=== PATIENT | male | born 1960 | race Caucasian/White ===

== ENCOUNTER 2016-07-08 13:18 | Observation (INO) | payer MEDICARE, MEDICAID ==
[~2016-07-08] VITALS: Ht 175.3 cm; Wt 111.7 kg
[~2016-07-08 13:18] MED LIST: ASCO250T6 PO; ERGO400C PO; ERGO5000 PO; PRO1 PO
[2016-07-08 13:26] VITALS: BP 175/108; PULSE 70; RESP 10; O2SAT 100
[2016-07-08] MEDS ORDERED: Ondansetron 8 mg ODT Tablet PO ONE (14:35)
--- NOTE | 2016-07-08 14:55 | ED.REPORT ---
HPI-NVD Date of Service July 08, 2016 ED Provider: Priya Charles History of Present Illness: nausea, vomiting since this am. constant vomiting. no sob. slight diarrhea. 1 liter of fluids no help. normally healthy. primary care is ball. 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 followed at the . just had appointment recently in April. Per his report, all fine Nursing Notes Stated Complaint: SICK Chief Complaint: Male Abdominal Pain Nursing Notes Reviewed: Yes Allergies: Coded Allergies: No Known Allergies (Unverified , 05/05/09) Scheduled Ascorbic Acid-Expunged Drug, Do Not Renew! (Vitamin C-Expunged Drug, Do Not Renew!) 250 Mg Tablet 500 MG PO BID Ergocalciferol-Expunged Drug, Do Not Renew! (Vitamin D2-Expunged Drug, Do Not Renew!) 50,000 Unit Capsule 2,000 UNIT PO DAILY Ergocalciferol-Expunged Drug, Do Not Renew! (Vitamin D-Expunged Drug, Do Not Renew!) 400 Unit Capsule 2,000 UNIT PO BID Tacrolimus-Expunged Drug, Do Not Renew! (Prograf-Expunged Drug, Do Not Renew!) 1 Mg Capsule 1 MG PO BID Tacrolimus Anhydrous 1mg 2 tabs BID General Time Seen by MD: 14:54 Chief Complaint Nausea, Vomiting Onset Occurred: 17 - 20 hours ago Symptom Duration: Since onset Past Medical History Past Medical History liver transplant Denies: Asthma, Diabetes mellitus Past Surgical History liver transplant Smoking History Former Smoker (quit 12 years ago 07/08/2016) Social History Alcohol Use: Denies alcohol use Drug Use: Denies drug use Occupation lives with roommate, no work or school 07/08/2016 Ambulatory Status Independent Review of Systems Basic Review of Systems Eyes: Vision NL, No discharge Hematologic: No bleeding, No bruising Psychiatric: Normal thought content Physical Exam Initial Vital Signs Vital Signs (First) Date Time Temp Pulse Resp B/P Pulse Ox O2 Delivery O2 Flow Rate FiO2 07/08/16 13:26 36.6 70 10 175/108 100 Room Air Initial VS: Reviewed, Vital signs abnormal Head / Eyes: Atraumatic, Normocephalic, PERRL ENT: Mucous membranes moist, Conjunctiva normal, No scleral icterus Neck: Supple, Non-tender, Full range of motion Respiratory: Breath sounds normal, Clear to auscultation, No respiratory distress Cardiovascular: Regular rate & rhythm, Heart sounds normal, Intact distal pulses Back: No CVA tenderness Lymphatic: No lymphadenopathy Extremities: Vascular intact, Neuro intact, No swelling, No tenderness Skin: Warm, Dry, No cyanosis Neurologic: Alert, Oriented, Nonfocal Psychiatric: Mood/affect normal, Behavior normal, Normal thought content General/Constitutional: Awake, Alert Distress / Hydration: Positive: Distress mild Abdomen: Atraumatic, Soft, Non-tender, McBurney's non-tender Respiratory / Chest: Atraumatic, Breath sounds NL, Breath sounds = bilat Cardiovascular: Heart rate NL, Regular rhythm, Heart sounds NL Interpretation & Diagnostics Lab Results Interpretation Result Diagram: 07/08/16 1527 07/08/16 1527 Test 07/08/16 14:40 07/08/16 15:27 07/08/16 16:45 Hold Urine Received (Received) White Blood Count 11.8th/mm3 (3.8-10.1) Red Blood Count 5.09mil/mm3 (4.40-5.80) Hemoglobin 14.8g/dL (13.8-17.2) Hematocrit 41.8% (41.0-50.0) Mean Corpuscular Volume 82.1fL (81-100) Mean Corpuscular Hemoglobin 29.1pg (27.0-35.0) Mean Corpuscular Hemoglobin Concent 35.4% (32.0-37.0) Red Cell Distribution Width 13.4% (12.3-15.4) Platelet Count 196bil/L (150-400) Neutrophils (%) (Auto) 85.8% (40-74) Lymphocytes (%) (Auto) 9.1% (14-46) Monocytes (%) (Auto) 4.1% (4-12) Eosinophils (%) (Auto) 0.2% (0-5) Basophils (%) (Auto) 0.3% (0-3) Sodium Level 136mEq/L (134-144) Potassium Level 3.4mEq/L (3.5-5.2) Chloride Level 97mEq/L (97-108) Carbon Dioxide Level 19mmol/L (18-29) Blood Urea Nitrogen 15mg/dL (6-24) Creatinine 0.80mg/dL (0.76-1.27) Estimat Glomerular Filtration Rate 106mL/min (>59) Glucose Level 141mg/dL (60-99) Lactic Acid Level 1.1mmol/L (0.4-2.0) Calcium Level 9.4mg/dL (8.5-10.1) Total Bilirubin 0.4mg/dL (0.0-1.2) Aspartate Amino Transf (AST/SGOT) 18U/L (0-50) Alanine Aminotransferase (ALT/SGPT) 18U/L (0-44) Alkaline Phosphatase 105U/L (25-150) Troponin T < 0.010ug/L (0.0-0.011) Total Protein 7.8g/dL (6.4-8.4) Albumin 4.8g/dL (3.4-5.0) Amylase Level 64U/L (28-100) Lipase 32U/L (13-60) Urine Color Yellow (YELLOW) Urine Appearance Clear (CLEAR,HAZY) Urine pH 6.5 (5.0-8.0) Urine Specific Buras 1.015 (1.003-1.035) Urine Protein 100mg/dL (NEG,TRACE) Urine Glucose (UA) Negativemg/dL (NEGATIVE) Urine Ketones 15mg/dL (NEGATIVE) Urine Occult Blood Moderate (NEGATIVE) Urine Nitrite Negative (NEGATIVE) Urine Bilirubin Negative (NEGATIVE) Urine Urobilinogen Normalmg/dL (NORMAL) Urine Leukocyte Esterase Negative (NEGATIVE) Urine RBC >50/hpf (0-2) Urine WBC 0-5/hpf (0-5) Urine Epithelial Cells Few/hpf (NONE-MOD) Urine Crystals None seen (NONE SEEN) Urine Bacteria Few/hpf (NONE-FEW) Urine Hyaline Casts None/lpf (NONE) Urine Granular Casts None seen (NONE SEEN) Urine Waxy Casts None seen (NONE SEEN) Urine Red Blood Cell Casts None seen (NONE SEEN) Urine White Blood Cell Casts None seen (NONE SEEN) Urine Mucus None seen (None Seen) Urine Trichomonas None seen (NONE SEEN) Urine Yeast None (NONE SEEN) Urinalysis Comment None Urine Culture Reflexed Not indicated Re-Eval/Medical Decision Med Decision/Clinical Course patient initially seen at the walk [facility] clinic. Had no response to zofran and fluids. Had some responce to reglan and phenergan. Did not take blood pressure medication this am becuase of vomiting. Unable to decrease nausea and vomiting. Admit. Care of patient turned over to Dr. Whitaker. Patient discussed with Dr. Bhatt at hepatology clinic. Vomiting not related to transplant. 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 He requests that if patient is admitted daily labs be drawn. Any questions he is available for consult. Discharge & Departure Impression: Primary Impression: Vomiting Additional Impressions: Nausea High blood pressure Disposition: ADMITTED TO HOSPITAL Patient Instructions: Acute Nausea and Vomiting (ED) Referrals: Maximo Fay MD (PCP) EDSupervising Provider for APC: Eric Whitaker MD copies to: Maximo Fay MD, Sue ARNP July 08, 2016 14:55 Priya Charles July 08, 2016 14:55
[2016-07-08] MEDS ORDERED: MetoCLOpramide 5 mg/mL 2 mL Inj IVPUSH ONE (15:05)
[2016-07-08] MEDS ORDERED: 0.9% Sodium Chloride 1,000 ML IV ONE (15:05)
[2016-07-08 15:33] LABS: BASOPHILS % (AUTO) 0.3 % (0-3); EOSINOPHILS % (AUTO) 0.2 % (0-5); MONOCYTES % (AUTO) 4.1 % (4-12); Mean Corpuscular Hemoglobin 29.1 pg (27.0-35.0); Mean Corpuscular Volume 82.1 fL (81-100); NEUTROPHILS % (AUTO) 85.8 % (40-74); Platelet Count 196 bil/L (150-400)
[2016-07-08 16:12] LABS: Lipase 32 U/L (13-60); TROPONIN T < 0.010 ug/L (0.0-0.011)
--- NOTE | 2016-07-08 16:28 | DRSVH ---
PROCEDURE: US ABDOMEN INDICATIONS: upper abd pain, hx of liver transplant TECHNIQUE: Real-time scanning was performed of the abdominal and retroperitoneal organs, with image documentatio n. COMPARISON: None. FINDINGS: Liver length: 13.81 cm Gallbladder Wall Thickness: n.a. CBD: 4.30 mm Spleen length: 13.32 cm Right kidney length: 12.42 cm Left kidney length: 11.32 cm Aorta(Proximal): - Aorta(Mid): 2.44 cm Aorta(Distal): 2.04 cm RCIA: 1.57 cm LCIA: 1.59 cm Liver: Liver is normal in size and homogeneous in echotexture. Gallbladder: Gallbladder is surgically absent Biliary ducts: Intrahepatic bile ducts are non-dilated. Extrahepatic bile duct caliber is normal. Normal is 6-7 mm or less in diameter, or 10 mm or less post-cholecystectomy. Pancreas: Obscured by overlying bowel gas. Spleen: Spleen is normal in size and homogeneous in echotexture. Kidneys: Kidneys are normal in size and echotexture. No hydronephrosis or nephrolithiasis. No daryl d masses. Aorta: Visualized aorta is normal in caliber at less than 3 cm. Iliacs: Proximal common iliac arteries are normal in caliber at less than 2.5 cm. IVC: Intrahepatic inferior vena cava is patent. Miscellaneous: No free abdominal fluid. IMPRESSION: No ultrasound findings with the upper abdominal pain. Dictated by: Ingrid Leigh M.D. on 07/08/2016 at 16:26 Transcribed by: SRINI on 07/08/2016 at 16:28 Approved by: Ingrid Leigh M.D. on 07/08/2016 at 17:26
[2016-07-08 17:00] VITALS: BP 160/97; PULSE 85; RESP 18; O2SAT 96
[2016-07-08] MEDS ORDERED: Promethazine Inj 25 MG in 0.9% Sodium Chloride 50 ML IV ONE (17:00)
[2016-07-08 17:18] LABS: APPEARANCE,URINE CLEAR (CLEAR,HAZY); COLOR,URINE YELLOW (YELLOW); OCCULT BLOOD,URINE MODERATE (NEGATIVE); PH,URINE 6.5 (5.0-8.0); UROBILINOGEN,URINE NORMAL (NORMAL)
--- NOTE | 2016-07-08 17:59 | DRSVH ---
PROCEDURE: CT ABDOMEN AND PELVIS WITH CONTRAST ([id number]) INDICATIONS: nausea, vomiting abd pain TECHNIQUE: After the administration of intravenous contrast, 5 mm thick sections acquired from the diaphragm to the symphysis. 5 mm coronal and sagittal reformats were acquired. For radiation dose reduction, the following was used: automated exposure control, adjustment of mA and/or kV according to patient siz e. COMPARISON: [facility], CT, ABD/PELVIS W/CON (PN), 12/11/2009, 13:30. FINDINGS: Image quality: Excellent. ABDOMEN: Lung bases: Lung bases are clear of acute opacities. Nodule in the left lower lobe is stable.. Hea rt size is normal. Solid organs: Liver and spleen are normal in size and enhancement. Gallbladder is surgically absent . Biliary system is non dilated. Pancreas enhances normally. No adrenal nodules. Kidneys demonstr ate normal size and enhancement, without hydronephrosis. Peritoneum and bowel: Multilevel hernia. Bowel loops demonstrate normal wall thickness and caliber. No free fluid or air. Few scattered colonic diverticuli are noted. Appendix is normal. Nodes and vessels: No retroperitoneal or mesenteric adenopathy by size criteria. Aorta and inferior vena cava are normal in size. Scattered atherosclerotic calcifications noted abdominal pelvic vascul ature. Miscellaneous: Small left paramedian ventral hernia which partially contains portion of the transver se colon. PELVIS: Genitourinary: Bladder wall thickness is normal. Miscellaneous: No adenopathy. Small bilateral fat containing inguinal hernias. Bones: No suspicious bony lesions. No vertebral body compression fractures. 9 degenerative disc dis ease and facet arthropathy. IMPRESSION: 1. No acute disease process. 2. Colonic diverticulosis without evidence of diverticulitis. 3. Small left paramedian supraumbilical ventral hernia which contains the antimesenteric wall of the distal transverse colon. 3. No dilated loops of bowel. 4. No free fluid or air. 5. The appendix is normal. 6. Left lower lobe nodule stable compared to 12/11/2009. Dictated by: Maxine Perez MD, PhD on 07/08/2016 at 17:52 Approved by: Maxine Perez MD, PhD on 07/08/2016 at 17:58
[2016-07-08] MEDS ORDERED: LidocaineVisc 2%:Antacid 1:1 10 mL Syringe PO ONE (18:40)
[2016-07-08 19:10] VITALS: BP 180/115; PULSE 96; RESP 18; O2SAT 100
[2016-07-08] MEDS ORDERED: Ondansetron 2 mg/mL 2 mL Inj IVPUSH ONE (20:10)
[2016-07-08] MEDS ORDERED: Ondansetron 2 mg/mL 2 mL Inj IVPUSH PRN (22:10)
[2016-07-08] MEDS ORDERED: Alum-Mag Hydrox-Simeth 30 mL Suspension PO PRN (22:10)
[2016-07-08] MEDS ORDERED: Polyethylene Glycol (PEG) 17 Gm Powder PO PRN (22:10)
[2016-07-08 22:21] VITALS: BP 130/85; PULSE 90; RESP 18; O2SAT 96
[2016-07-08 22:47] VITALS: BP 140/97; PULSE 90; RESP 16; O2SAT 96
[2016-07-09] MEDS ORDERED: 0.9% Sodium Chloride 1,000 ML IV ONE (01:15)
--- NOTE | 2016-07-09 01:20 | PCM.HPMED ---
Subjective Date of Service July 09, 2016 Primary Provider: Admitting Physician: Brandon Estevez MD Primary Care Physician: Maximo Fay MD Attending Physician: Brandon Estevez MD Chief Complaint: Nausea and vomiting. History of Present Illness: Mr. Will Faust is a very pleasant 55-year-old gentleman who presents to the [facility] emergency Department with 18 hours of new-onset intractable nausea and vomiting. He denies any sick contacts, foods out of the ordinary, homemade pizza. He denies syncope, fever, chills, chest pain, shortness of breath, hematemesis, constipation, diarrhea, dysuria. 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 Other past medical history includes hypertension. Patient denies exposure to chemicals, drugs or anything out of the usual. In the emergency department upon admission patient's temperature is 36.6, pulse 70, respiration rate of 10, blood pressure 175/108, pulse ox 100% on room air. Patient's white count is 11.8, hemoglobin 14.8, neutrophils 85.8, lymphs 9.1. Patient's sodium is 136, potassium 3.4, chloride 97, CO2 19, creatinine 0.8, glucose 141, lactic acid 1.1. AST ALT and alkaline phosphatase all normal, troponin is negative. Amylase and lipase negative. UA has moderate protein of 100, ketones of 15, red blood cells greater than 50. Review of Systems: Pertinent positives as noted in HPI. All other systems were reviewed and are negative Allergies Coded Allergies: No Known Allergies (Unverified , 05/05/09) Home Medications Amlodipine 10 mg daily Calcium 600 mg twice a day Cyclobenzaprine 10 mg 2 times a day Fluoxetine 20 mg daily Ibuprofen 600 mg every 6 hours Metoprolol tartrate 25 mg twice a day for heart palpitations Multivitamin daily Hibbs 5 mg 325 mg every 6 hours when necessary pain Tacrolimus 1 mg Every 6 hours Viagra 100 mg daily as needed before sexual activity Vitamin C 500 mg Vitamin D 1999 PMH Hypertension Liver transplant 2006. Surgical History Liver transplant 2006. Family History Patient's mother had and of lung cancer. Patient's father was obese. Social History Hx Alcohol Use: Yes (quit 18 yrs ago) Hx Substance Use: No Smoking Status: Former Smoker (quit 12 years ago 07/08/2016) Exam Vital Signs Vital Sign - Last Date Time Temp Pulse Resp B/P Pulse Ox O2 Delivery O2 Flow Rate FiO2 07/08/16 22:47 36.9 90 16 140/97 96 Room Air Intake and Output 07/08/16 07/08/16 07/09/16 Cumulative From/Thru 15:00 23:00 07:00 07/08/16 13:26 - 07/08/16 23:00 Intake Total 1000 ml 1000 ml Balance 1000 ml 1000 ml Intake IV Total 1000 ml 1000 ml Exam General: Middle-aged gentleman lying in bed in moderate distress. Obese and well-developed, well-nourished, appropriately interactive HEENT: Normocephalic, atraumatic. External ears without defect. Pupils equal, round, and reactive to light and accommodation. Anicteric sclerae, moist conjunctivae, and no lid lag. Oropharynx free of erythema and cobble stoning with moist mucosa. Neck: Supple with full range of motion. No jugular venous distension. No bruits. No lymphadenopathy or thyromegaly. Cardiovascular: Regular rate and rhythm with no murmurs, rubs, or gallops appreciated Pulmonary: Clear to auscultation bilaterally with no crackles, wheezes, or rhonchi. Normal respiratory effort with no use of accessory muscles. Abdomen: Bowel tones present. Soft obese with multiple small abdominal wall herniations present, nontender, nondistended. No hepatosplenomegaly or masses appreciated. Extremities: No clubbing, cyanosis, edema, or lymphadenopathy appreciated. Skin: Normal temperature, turgor, and texture; no rash, ulcers, or subcutaneous nodules appreciated. Neurological: Cranial nerves grossly intact. Normal muscle strength, tone, and bulk. Reflexes, coordination, and sensory function within normal limits. No known gait impairment. Psychiatric: Normal mood and affect. Alert and oriented to person, place, and time. Lab and Diagnostics Result Diagram: 07/08/16 1527 07/08/16 1527 X-Rays, CTs and MRIs CT ABDOMEN AND PELVIS WITH CONTRAST IMPRESSION: 1. No acute disease process. 2. Colonic diverticulosis without evidence of diverticulitis. 3. Small left paramedian supraumbilical ventral hernia which contains the antimesenteric wall of the distal transverse colon. 4. No dilated loops of bowel. 5. No free fluid or air. 6. The appendix is normal. 7. Left lower lobe nodule stable compared to 12/11/2009. Dictated by: Maxine Perez MD, PhD on 07/08/2016 at 17:52 US ABDOMEN IMPRESSION: No ultrasound findings with the upper abdominal pain. Dictated by: Ingrid Leigh M.D. on 07/08/2016 at 16:26 Assessment & Plan Mr. Will Faust is a very pleasant 55-year-old gentleman who presents to the [facility] emergency Department with 18 hours of new-onset intractable nausea and vomiting. He denies any sick contacts, foods out of the ordinary, homemade pizza. He denies syncope, fever, chills, chest pain, shortness of breath, hematemesis, constipation, diarrhea, dysuria. 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 Other past medical history includes hypertension. 1. Intractable nausea and vomiting, present on admission. Active. - Continue IV fluids as needed. - Zofran and Phenergan PRN nausea. - Unclear etiology at this point. - Abdominal CT and ultrasound as above. 2. History of Liver transplant, present on admission. - Liver transplant 2006 followed by transplant team. - Patient on tacrolimus daily. Holding due to N/V. Day team to address in the AM. - Repeat a.m. labs. - Continue home medications. 3. Chronic essential Hypertension, not present on admission. Stable. - Avoid use of lisinopril patient had previous moderate cough - Continue home amlodipine 10 mg daily when appropriate. - Continue home Metoprolol tartrate 25 mg 2 times daily when appropriate. 4. Chronic depression, present on admission. Stable. - Continue home Fluoxetine 20 mg tab take half tablet once daily. Holding other home medications: Multivitamin Vitamin C Vitamin D Viagra Hibbs 06/22/2024 Cyclobenzaprine 10 mg Calcium 600 mg Acetaminophen for mild pain when necessary. Bowel regimen Senna and MiraLAX scheduled and PRN. Zofran and Phenergan when necessary for nausea and vomiting. SubQ heparin held for now. SCDs in place. Disposition: Patient is admitted under observation status. Discharge is dependent upon fluid status and nausea and vomiting. Discharge home when medically stable. Pain Evaluation: Adequate Pain Control Resuscitation Status: CPR: Attempt Resuscitation Attending Statement The patient was seen and examined together with Dr. Salinas on 07/08 and I agree with the history, exam and plan as outlined in the note above. DARYA SALINAS DO July 09, 2016 01:20 Brandon Estevez MD July 09, 2016 04:38
[2016-07-09] MEDS ORDERED: Ondansetron 2 mg/mL 2 mL Inj IVPUSH PRN (03:10)
[2016-07-09] MEDS ORDERED: Promethazine Inj 25 MG in 0.9% Sodium Chloride-Pha MIX 100 ML IV PRN (03:20)
--- NOTE | 2016-07-09 04:53 | NUR ---
Admit Note Pt. arrived to the unit approx. 2300 via gurney, A&Ox4, calm, pleasant and cooperative to staff and care, able to verbalize needs with clear speech, oriented to rm, call light, tv, and bed, given 1 dose of prn zofran per order with a good results, no emesis noted/reported, no other discomfort voiced this shift, vitals stable, call light in reach, will continue to monitor.
[2016-07-09 06:00] VITALS: BP 138/81; PULSE 69; RESP 16; O2SAT 97
[2016-07-09 08:15] VITALS: BP 152/95; PULSE 72; RESP 16; O2SAT 95
[2016-07-09] MEDS ORDERED: FLUoxetine 4 mg/mL 118 mL Solution PO SCH (08:30)
[2016-07-09] MEDS ORDERED: FLUO10CA20 PO (08:53)
[2016-07-09] MEDS ORDERED: METO25TA99 PO (08:53)
[2016-07-09] MEDS ORDERED: AMLO10TA3 PO (08:53)
[2016-07-09] MEDS ORDERED: IBUP-1827 PO (08:53)
[2016-07-09] MEDS ORDERED: TACR1CAP8 PO (08:57)
[2016-07-09] MEDS ORDERED: ERGO400T3 PO (08:57)
[2016-07-09] MEDS ORDERED: ASCO500W7 PO (08:57)
--- NOTE | 2016-07-09 11:09 | NUR ---
TIMOTHY explained and signed. Copy of TIMOTHY and Medicare self administered medication information given to pt.
--- NOTE | 2016-07-09 11:18 | PCM.DIMED ---
Discharge Instructions Date of Service July 09, 2016 Dates of Hospitalization July 08, 2016 at 22:31 Discharge Diagnosis Discharge Diagnosis Vomiting Hypertension Depression Liver Transplant Diet No restrictions Activity No restrictions Call your provider Fever or Chills, Shortness of breath, Bleeding, Chest pain, Vomitting, Excessive diarrhea, Weakness (unilateral) Patient Instructions Follow-up Provider: Maximo Fay MD Follow-up with PCP in: 1 week Jayleen Neil MD July 09, 2016 11:18
[2016-07-09 12:01] VITALS: BP_SYST 153; BP_SYST 166; BP_DIAS 104; BP_DIAS 105; PULSE 72; RESP 16; O2SAT 95
[2016-07-09] MEDS ORDERED: hydrALAZINE 20 mg/mL Inj IV PRN (12:05)
[2016-07-09 13:35] VITALS: BP 176/105
--- NOTE | 2016-07-09 14:01 | PCM.DC.MED ---
Discharge Summary Date of Service July 09, 2016 Dates of Hospitalization Date of Hospital Admission July 08, 2016 at 22:31 Date of Discharge: July 09, 2016 Providers: Admitting Physician: Brandon Estevez MD Primary Care Physician: Maximo Fay MD Attending Physician: Brandon Estevez MD Diagnosis at Time of Discharge Diagnosis at Time of Discharge Vomiting Hypertension Depression Liver Transplant Procedures XRay, CTs & MRIs CT ABDOMEN AND PELVIS WITH CONTRAST IMPRESSION: 1. No acute disease process. 2. Colonic diverticulosis without evidence of diverticulitis. 3. Small left paramedian supraumbilical ventral hernia which contains the antimesenteric wall of the distal transverse colon. 4. No dilated loops of bowel. 5. No free fluid or air. 6. The appendix is normal. 7. Left lower lobe nodule stable compared to 12/11/2009. Dictated by: Maxine Perez MD, PhD on 07/08/2016 at 17:52 US ABDOMEN IMPRESSION: No ultrasound findings with the upper abdominal pain. Dictated by: Ingrid Leigh M.D. on 07/08/2016 at 16:26 Brief History Mr. Will Faust is a very pleasant 55-year-old gentleman who presents to the [facility] emergency Department with 18 hours of new-onset intractable nausea and vomiting. He denies any sick contacts, foods out of the ordinary, homemade pizza. He denies syncope, fever, chills, chest pain, shortness of breath, hematemesis, constipation, diarrhea, dysuria. 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 Other past medical history includes hypertension. Patient denies exposure to chemicals, drugs or anything out of the usual. In the emergency department upon admission patient's temperature is 36.6, pulse 70, respiration rate of 10, blood pressure 175/108, pulse ox 100% on room air. Patient's white count is 11.8, hemoglobin 14.8, neutrophils 85.8, lymphs 9.1. Patient's sodium is 136, potassium 3.4, chloride 97, CO2 19, creatinine 0.8, glucose 141, lactic acid 1.1. AST ALT and alkaline phosphatase all normal, troponin is negative. Amylase and lipase negative. UA has moderate protein of 100, ketones of 15, red blood cells greater than 50. Hospital Course 1. Intractable nausea and vomiting, present on admission. Active. - Responded and resolved with IVF treatment. - Abdominal CT and ultrasound as above. - No cause found 2. History of Liver transplant, present on admission. - Liver transplant 2006 followed by transplant team. - Patient on tacrolimus daily. 3. Chronic essential Hypertension - Continue home amlodipine 10 mg daily - Continue home Metoprolol tartrate 25 mg 2 times daily - BP continues very high at discharge. He received one dose of Hydralazine today. He is confident that it will normalize when he is home again - Follow up with Dr. Sumeet macdonald. 4. Chronic depression, present on admission. Stable. - Continue home Fluoxetine 20 mg tab take half tablet once daily. On exam today the Heart, Lungs, Abdomen and Extremities are normal. He is discharged in stable condition. Exam Vital Signs (Last) Date Time Temp Pulse Resp B/P Pulse Ox O2 Delivery O2 Flow Rate FiO2 07/09/16 08:15 36.8 72 16 152/95 95 Room Air Test 07/08/16 14:40 07/08/16 15:27 07/08/16 16:45 Hold Urine Received (Received) White Blood Count 11.8th/mm3 (3.8-10.1) Red Blood Count 5.09mil/mm3 (4.40-5.80) Hemoglobin 14.8g/dL (13.8-17.2) Hematocrit 41.8% (41.0-50.0) Mean Corpuscular Volume 82.1fL (81-100) Mean Corpuscular Hemoglobin 29.1pg (27.0-35.0) Mean Corpuscular Hemoglobin Concent 35.4% (32.0-37.0) Red Cell Distribution Width 13.4% (12.3-15.4) Platelet Count 196bil/L (150-400) Neutrophils (%) (Auto) 85.8% (40-74) Lymphocytes (%) (Auto) 9.1% (14-46) Monocytes (%) (Auto) 4.1% (4-12) Eosinophils (%) (Auto) 0.2% (0-5) Basophils (%) (Auto) 0.3% (0-3) Sodium Level 136mEq/L (134-144) Potassium Level 3.4mEq/L (3.5-5.2) Chloride Level 97mEq/L (97-108) Carbon Dioxide Level 19mmol/L (18-29) Blood Urea Nitrogen 15mg/dL (6-24) Creatinine 0.80mg/dL (0.76-1.27) Estimat Glomerular Filtration Rate 106mL/min (>59) Glucose Level 141mg/dL (60-99) Lactic Acid Level 1.1mmol/L (0.4-2.0) Calcium Level 9.4mg/dL (8.5-10.1) Total Bilirubin 0.4mg/dL (0.0-1.2) Aspartate Amino Transf (AST/SGOT) 18U/L (0-50) Alanine Aminotransferase (ALT/SGPT) 18U/L (0-44) Alkaline Phosphatase 105U/L (25-150) Troponin T < 0.010ug/L (0.0-0.011) Total Protein 7.8g/dL (6.4-8.4) Albumin 4.8g/dL (3.4-5.0) Amylase Level 64U/L (28-100) Lipase 32U/L (13-60) Urine Color Yellow (YELLOW) Urine Appearance Clear (CLEAR,HAZY) Urine pH 6.5 (5.0-8.0) Urine Specific [place] 1.015 (1.003-1.035) Urine Protein 100mg/dL (NEG,TRACE) Urine Glucose (UA) Negativemg/dL (NEGATIVE) Urine Ketones 15mg/dL (NEGATIVE) Urine Occult Blood Moderate (NEGATIVE) Urine Nitrite Negative (NEGATIVE) Urine Bilirubin Negative (NEGATIVE) Urine Urobilinogen Normalmg/dL (NORMAL) Urine Leukocyte Esterase Negative (NEGATIVE) Urine RBC >50/hpf (0-2) Urine WBC 0-5/hpf (0-5) Urine Epithelial Cells Few/hpf (NONE-MOD) Urine Crystals None seen (NONE SEEN) Urine Bacteria Few/hpf (NONE-FEW) Urine Hyaline Casts None/lpf (NONE) Urine Granular Casts None seen (NONE SEEN) Urine Waxy Casts None seen (NONE SEEN) Urine Red Blood Cell Casts None seen (NONE SEEN) Urine White Blood Cell Casts None seen (NONE SEEN) Urine Mucus None seen (None Seen) Urine Trichomonas None seen (NONE SEEN) Urine Yeast None (NONE SEEN) Urinalysis Comment None Urine Culture Reflexed Not indicated Discharge Medications Discharge Medications Amlodipine (Amlodipine) 10 Mg Tablet 10 MG PO DAILY (Reported) Fluoxetine (Fluoxetine) 10 Mg Capsule 10 MG PO DAILY (Reported) Metoprolol Succinate ER (Metoprolol Succinate ER) 25 Mg Tab.er.24h 25 MG PO DAILY (Reported) Tacrolimus (Tacrolimus) 1 Mg Capsule 1 MG PO BID (Reported) As needed Ibuprofen (Ibuprofen) 600 Mg Tablet 600 MG PO QID PRN PRN For Pain (Reported) Miscellaneous Medications Ascorbic Acid/Ascorbate Sodium (Vitamin C 500 mg Wafer) 500 Mg Wafer 500 MG PO ( Reported) Ergocalciferol (Vitamin D2) (Vitamin D) 400 Unit Tablet 400 UNIT PO (Reported) Followup Plan Discharge Diet: No restrictions Discharge Activity: No restrictions Follow-up Provider: Maximo Fay MD Follow-up with PCP in: 1 week Jayleen Neil MD July 09, 2016 11:19
--- NOTE | 2016-07-09 14:24 | NUR ---
HTN- BP this am 152/95. HR 72. BP meds given as ordered. Continue to monitor.
--- NOTE | 2016-07-09 15:05 | NUR ---
Discharge note- Hydalazine 10mg IV given NDS
--- NOTE | 2016-07-09 15:07 | NUR ---
Discharge note- IV Hydralazine 10mg IV given for BP. Rechecked BP about 30 minutes later and BP was 176/205. MD notified and instructed patient to monitor BP at home. Patient denies any symptoms and indicated that he would check his BP. Discharged to home with and personal belongings.
== END 2016-07-09 14:10 | disposition home or self-care (01) ==
LOC: SED 13:18 → MOC 22:31
PROVIDERS: ADMIT Hospitalist; ATTEND Hospitalist
DX: R11.2 Nausea with vomiting, unspecified (principal); I10 Essential (primary) hypertension; F32.9 Major depressive disorder, single episode, unspecified; F10.21 Alcohol dependence, in remission; Z94.4 Liver transplant status; Z87.891 Personal history of nicotine dependence; Z79.52 Long term (current) use of systemic steroids
CPT/HCPCS: 74177; 76700; 80053; 81000; 82150; 83605; 83690; 84484; 85025; 93005; 96374; 96375; 96376; 99285; G0378; J0360; J2405; J2550; J2765; J7030; Q0169; Q9967